=== PATIENT | female | born 1970 | race Caucasian/White ===

== ENCOUNTER → 2018-04-17 | Outpatient (CLI) | payer OTHER ==
--- NOTE | 2018-04-17 16:02 | RADIOLOGY REPORT (SQ) ---
EXAM DESCRIPTION: U/S RETROPERITON (RENAL/AORTA) COMPLETED DATE/TIME: 04/17/2018 3:40 pm REASON FOR STUDY: CALCULUS OF KIDNEY N20.0 CALCULUS OF KIDNEY COMPARISON: Abdominal ultrasound study dated 10/30/2014 TECHNIQUE: Dynamic and static grayscale images acquired of the kidneys and bladder and recorded on P ACS. Additional selected color Doppler and spectral images recorded. LIMITATIONS: None. FINDINGS: RIGHT KIDNEY: The right kidney measures 10.7 cm, normal size. Normal echogenicity. No carroll id or suspicious masses. No hydronephrosis. No calcifications. LEFT KIDNEY: The left kidney measures 11.3 cm, normal size. Normal echogenicity. No solid or suspici ous masses. No hydronephrosis. No calcifications. BLADDER: No masses. Ureteral jets are not visualized. OTHER FINDINGS: Fatty liver, stable finding since the prior study dated 10/30/2014. IMPRESSION: 1. NORMAL RENAL ULTRASOUND. 2. Incidentally, fatty liver. TECHNICAL DOCUMENTATION: JOB ID: [id number] [employer]- All Rights Reserved Reading location - IP/workstation name: [email or web address]
== END ==
LOC: RAD 15:11
PROVIDERS: ATTEND Nurse Practitioner
DX: N20.0 Calculus of kidney (principal); K76.0 Fatty (change of) liver, not elsewhere classified
CPT/HCPCS: 76770